=== PATIENT | male | born 1975 | race Two or more races ===

== ENCOUNTER → 2016-08-03 | Outpatient (CLI) | payer OTHER ==
--- NOTE | 2016-08-04 04:15 | REP ---
Clinical: Chronic right scrotal pain and swelling. Technique: Huddleston scale and color Doppler evaluation using linear and curved array transducer with color Doppler evaluation. Findings: Small left hydrocele with debris is appreciated along with large right debris laden hydrocele measuring approximately 14.3 cm maximal diameter suggesting sequelae of prior insult. The testicles and epididymi are relatively normal in contour, size, echogenicity, vascularity and overall appearance/contour. There is no evidence for intratesticular mass lesion, infectious/inflammatory process, with torsion. No intervened varicoceles are identified. Right testicle measures 5.7 x 2.2 x 2.9 cm. Left testicle measures 5.0 x 2.1 x 3.2 cm. Impression: 1. Chronic-appearing bilateral hydroceles (right greater than left) up to 14.3 cm maximal diameter in the right nanci scrotum. 2. Relatively normal appearance to the bilateral testicles and epididymi. Signed by Crispin Hernandez MD 08/04/2016 04:06 A
== END ==
LOC: M SMT 13:07
PROVIDERS: ATTEND Nurse Practitioner Family
DX: N50.89 Other specified disorders of the male genital organs (principal)

== ENCOUNTER → 2016-08-28 | Outpatient (REF) | payer OTHER ==
[~2016-08-28] MED LIST: LISI10TA4 PO; METF500T PO; ZOLO50TA PO
[2016-08-28 13:04] LABS: MEAN CORPUSCULAR HEMOGLOBIN 31.6 pg (27.0-33.0); MEAN CORPUSCULAR HGB CONC 35.9 g/dl (32.0-36.5); RED CELL DISTRIBUTION WIDTH 13.1 % (11.5-14.5); WHITE BLOOD COUNT 10.5 K/mm3 (4.0-10.0)
[2016-08-28 13:26] LABS: INR 0.95
[2016-08-28 14:05] LABS: ALBUMIN 3.7 GM/DL (3.2-5.2); ALBUMIN/GLOBULIN RATIO 1.06 (1.00-1.93); ALKALINE PHOSPHATASE 98 U/L (45-117); ALT/SGPT 20 U/L (12-78); ANION GAP 7 MEQ/L (8-16); AST/SGOT 10 U/L (15-37); BILIRUBIN,TOTAL 0.4 MG/DL (0.2-1.0); BLOOD UREA NITROGEN 12 MG/DL (7-18); CALCIUM LEVEL 8.9 MG/DL (8.5-10.1); CARBON DIOXIDE LEVEL 29 MEQ/L (21-32); CHLORIDE LEVEL 101 MEQ/L (98-107); CREATININE FOR GFR 0.76 MG/DL (0.70-1.30); GLOMERULAR FILTRATION RATE > 60.0 (>60); GLUCOSE, FASTING 164 MG/DL (70-105); POTASSIUM SERUM 4.6 MEQ/L (3.5-5.1); SODIUM LEVEL 137 MEQ/L (136-145); TOTAL PROTEIN 7.2 GM/DL (6.4-8.2)
== END ==
LOC: M LABDRWAD 12:41
PROVIDERS: ATTEND Nurse Practitioner Family
DX: Z01.818 Encounter for other preprocedural examination (principal); N43.3 Hydrocele, unspecified

== ENCOUNTER → 2016-10-14 | Day surgery (SDC) | payer OTHER ==
[~2016-10-14] VITALS: Ht 188 cm; Wt 93.4 kg
[~2016-10-14] MED LIST changes: +ATOR1TAB21 PO; +BUPIVACAINE HCL 0.25% 30 ML VIAL As Ordered ONE; +KETOROLAC 60 MG/2 ML VIAL (J1885) As Ordered ONE; +LIDOCAINE 2% INJ 100 MG/5 ML SDV (FOR ANES.) As Ordered ONE; +LIDOCAINE 2% MDV 20 ML VIAL As Ordered ONE; +LR 1,000 ML IV ONE; +LR 1,000 ML IV SCH; +MEPERIDINE INJ 25 MG/ML VIAL (J2175) IV PRN; -METF500T PO; +METF500T13 PO; +METOCLOPRAMIDE INJ 10MG/2ML VIAL (J2765) IV PRN; +MIDAZOLAM INJ 2 MG/2 ML VIAL (J2250) As Ordered ONE; +ONDANSETRON 4MG/2ML VIAL (J2405) As Ordered ONE; +ONDANSETRON 4MG/2ML VIAL (J2405) IV PRN; +PERCOCET 5MG/325MG TAB PO PRN; +PROPOFOL 200 MG/20 ML VIAL As Ordered ONE; +dexameTHASONE 4 MG/ML 1ML VIAL (J1100) As Ordered ONE; +fentaNYL 100 MCG/2 ML INJECTION (J3010) As Ordered ONE; +fentaNYL 100 MCG/2 ML INJECTION (J3010) IV PRN
[2016-10-14 14:20] VITALS: BP 152/89
--- NOTE | 2016-10-15 10:22 | RO ---
DATE OF PROCEDURE: 10/14/2016 PREPROCEDURE DIAGNOSIS: Right hydrocele. POSTPROCEDURE DIAGNOSIS: Right hydrocele PROCEDURE: Right hydrocelectomy. SURGEON: Jesu Lowe MD [employer] SPECIALIST: None. ANESTHESIA: General. OPERATIVE INDICATIONS: This is a 40-year-old male who was found to have a large right sided hydrocele. He is here today for treatment. DESCRIPTION OF PROCEDURE: The patient went to the operating room and general anesthesia was induced. Prophylactic antibiotics were infused. He was then placed in the supine position and prepped and draped in the usual sterile fashion. At this point, an approximately 6 cm transverse incision was made over the right hemiscrotum. I then dissected down through all the scrotal wall layers. At this point, the testicle was then delivered out of the scrotum but still within the tunica vaginalis. The tunica vaginalis was then opened and all the fluid was drained out of the hydrocele. Of note, the hydrocele fluid appeared clear. At this point, the hydrocele wall was excised and sent off for pathologic analysis. We then oversewed the edges of the hydrocele wall using a running #3-0 Vicryl suture. Once that was done, we checked for hemostasis and any areas of bleeding were controlled with Bovie electrocautery. Once we were satisfied with hemostasis, the testicle was the delivered back within the right hemiscrotum in its normal, anatomic position. We then closed the Dart[place] fascia with a running #3-0 Vicryl suture. The skin was then closed with interrupted #2-0 chromic sutures. Dressings were then applied and this marked conclusion of the procedure. The patient was then awakened from anesthesia, transported to the recovery room in stable condition. ESTIMATED BLOOD LOSS: 5 mL. COMPLICATIONS: None. SPECIMENS: Right hydrocele sac. PLAN: The patient will followup in the clinic in a few weeks for postoperative visit. NITA
== END | disposition home or self-care (01) ==
LOC: M SDC 09:22
PROVIDERS: ATTEND Urology
DX: N43.3 Hydrocele, unspecified (principal); E11.9 Type 2 diabetes mellitus without complications; I10 Essential (primary) hypertension; E78.5 Hyperlipidemia, unspecified; K21.9 Gastro-esophageal reflux disease without esophagitis; F17.210 Nicotine dependence, cigarettes, uncomplicated; Z79.899 Other long term (current) drug therapy; F32.9 Major depressive disorder, single episode, unspecified
CPT/HCPCS: 55040; 88302; J0690; J1100; J1885; J2250; J2405; J3010

== ENCOUNTER → 2017-12-16 | Outpatient (CLI) | payer OTHER | LOC: M RAD 13:11 | DX: E11.9 Type 2 diabetes mellitus without complications (principal) | CPT/HCPCS: 93880 ==

== ENCOUNTER → 2020-08-15 | Outpatient (REF) | payer OTHER, MEDICAID ==
[~2020-08-15] MED LIST changes: -BUPIVACAINE HCL 0.25% 30 ML VIAL As Ordered ONE; -KETOROLAC 60 MG/2 ML VIAL (J1885) As Ordered ONE; -LIDOCAINE 2% INJ 100 MG/5 ML SDV (FOR ANES.) As Ordered ONE; -LIDOCAINE 2% MDV 20 ML VIAL As Ordered ONE; +LISI10TA22 PO; -LISI10TA4 PO; -LR 1,000 ML IV ONE; -LR 1,000 ML IV SCH; -MEPERIDINE INJ 25 MG/ML VIAL (J2175) IV PRN; -METOCLOPRAMIDE INJ 10MG/2ML VIAL (J2765) IV PRN; -MIDAZOLAM INJ 2 MG/2 ML VIAL (J2250) As Ordered ONE; -ONDANSETRON 4MG/2ML VIAL (J2405) As Ordered ONE; -ONDANSETRON 4MG/2ML VIAL (J2405) IV PRN; -PERCOCET 5MG/325MG TAB PO PRN; -PROPOFOL 200 MG/20 ML VIAL As Ordered ONE; -dexameTHASONE 4 MG/ML 1ML VIAL (J1100) As Ordered ONE; -fentaNYL 100 MCG/2 ML INJECTION (J3010) As Ordered ONE; -fentaNYL 100 MCG/2 ML INJECTION (J3010) IV PRN
[2020-08-15 12:55] LABS: BASO # 0.1 10^3/uL (0.0-0.2); BASO % 0.8 % (0.0-1.0); EOS # 0.3 10^3/uL (0.0-0.5); EOS % 2.4 % (0.0-3.0); HEMATOCRIT 38.8 % (42.0-52.0); HEMOGLOBIN 13.3 g/dl (13.5-17.5); LYMPH # 1.7 10^3/uL (1.5-5.0); LYMPH % 13.5 % (24.0-44.0); MEAN CORPUSCULAR HEMOGLOBIN 30.1 pg (27.0-33.0); MEAN CORPUSCULAR HGB CONC 34.3 g/dl (32.0-36.5); MEAN CORPUSCULAR VOLUME 87.8 fl (80.0-96.0); MONO # 0.8 10^3/uL (0.0-0.8); MONO % 6.6 % (2.0-8.0); NEUTROPHILS # 9.7 10^3/uL (1.5-8.5); NEUTROPHILS % 76.3 % (36.0-66.0); PLATELET COUNT, AUTOMATED 398 10^3/uL (150-450); RED BLOOD COUNT 4.42 10^6/uL (4.30-6.10); WHITE BLOOD COUNT 12.7 10^3/uL (4.0-10.0)
[2020-08-15 13:46] LABS: ALBUMIN 2.6 GM/DL (3.2-5.2); BILIRUBIN,TOTAL 0.3 MG/DL (0.2-1.0); CALCIUM LEVEL 8.5 MG/DL (8.5-10.1); CHOLESTEROL RISK RATIO 4.666 (<5); CREATININE FOR GFR 1.72 MG/DL (0.70-1.30); GLOMERULAR FILTRATION RATE 45.8 (>60); POTASSIUM SERUM 5.1 MEQ/L (3.5-5.1); THYROID STIMULATING HORMONE 1.52 uIU/ML (0.358-3.740); TOTAL PROTEIN 6.1 GM/DL (6.4-8.2)
[2020-08-15 14:10] LABS: TOTAL 25(OH) VITAMIN D 15.1 NG/ML (30.0-100.0)
[2020-08-15 14:36] LABS: HEMOGLOBIN A1c 8.1 %
== END ==
LOC: M LABDRWAD 12:26
PROVIDERS: ATTEND Nurse Practitioner Family
DX: F32.9 Major depressive disorder, single episode, unspecified (principal); E11.9 Type 2 diabetes mellitus without complications; F17.209 Nicotine dependence, unspecified, with unspecified nicotine-induced disorders; I10 Essential (primary) hypertension

== ENCOUNTER 2024-03-07 03:51 | Inpatient (IN) | payer MEDICAID, OTHER ==
[~2024-03-07] VITALS: Ht 182.9 cm; Wt 98.8 kg
[2024-03-07] VITALS (38 sets, daily range): BP systolic 144–191; BP diastolic 66–111; TEMP 97.2–99.7; O2SAT 96–100
[2024-03-07] MEDS: NS (Normal Saline) 0.9% 1,000 ML IV ONE (04:30)
[2024-03-07 04:42] LABS: VENOUS BASE EXCESS -16.1 (-2.0-2.0); VENOUS HCO3 11.1 MMOL/L (23.0-27.0); VENOUS O2 SATURATION 96.2 % (60.0-80.0); VENOUS PARTIAL PRESSURE CO2 32.5 mmHg (38.0-50.0); VENOUS PARTIAL PRESSURE O2 110.1 mmHg (30.0-50.0); VENOUS PH 7.152 UNITS (7.330-7.430); VENOUS STANDARD HCO3 11.4 MMOL/L; VENOUS TOTAL CO2 12.1 MMOL/L (24.0-28.0)
[2024-03-07 04:51] LABS: BASO % 0.3 % (0.0-1.0); EOS # 0.2 10^3/uL (0.0-0.5); EOS % 2.6 % (0.0-3.0); LYMPH # 0.9 10^3/uL (1.5-5.0); LYMPH % 13.7 % (24.0-44.0); MEAN CORPUSCULAR HGB CONC 33.3 g/dl (32.0-36.5); MEAN CORPUSCULAR VOLUME 96.1 fl (80.0-96.0); MONO # 0.6 10^3/uL (0.0-0.8); MONO % 9.9 % (2.0-8.0); NEUTROPHILS # 4.8 10^3/uL (1.5-8.5); NEUTROPHILS % 73.2 % (36.0-66.0); PLATELET COUNT, AUTOMATED 245 10^3/uL (150-450); RED BLOOD COUNT 1.28 10^6/uL (4.30-6.10); WHITE BLOOD COUNT 6.5 10^3/uL (4.0-10.0)
[2024-03-07 04:56] LABS: HEMATOCRIT 12.3 % (42.0-52.0); HEMOGLOBIN 4.1 g/dl (13.5-17.5)
[2024-03-07 05:07] LABS: ETHYL ALCOHOL (ETHANOL) 0.004 % (0.000-0.010)
[2024-03-07 05:09] LABS: SALICYLATE LEVEL < 3.0 MG/DL (<30)
[2024-03-07 05:10] LABS: CPK CREATINE PHOSPHOKINASE 280 U/L (46-171); MB/CK RELATIVE INDEX 2.14 (< OR =4)
[2024-03-07 05:12] LABS: THYROID STIMULATING HORMONE 2.555 uIU/ML (0.55-4.78)
[2024-03-07 05:27] LABS: ALKALINE PHOSPHATASE 77 U/L (40-129); ALT/SGPT 14 U/L (7.0-40); AST/SGOT < 8 U/L (<34); BILIRUBIN,DIRECT < 0.1 MG/DL (<0.4); BILIRUBIN,TOTAL < 0.2 MG/DL (0.3-1.2); BLOOD UREA NITROGEN 144 MG/DL (9-23); CALCIUM LEVEL 8.1 MG/DL (8.5-10.1); CARBON DIOXIDE LEVEL 12 MMOL/L (20-31); CHLORIDE LEVEL 103 MMOL/L (98-107); CREATININE FOR GFR 12.12 MG/DL (0.70-1.30); GLOMERULAR FILTRATION RATE 4.7 (>56); GLUCOSE, FASTING 125 MG/DL (60-100); MAGNESIUM LEVEL 2.5 MG/DL (1.8-2.4); PHOSPHORUS LEVEL 9.9 MG/DL (2.5-4.9); POTASSIUM SERUM 5.6 MMOL/L (3.5-5.1); SODIUM LEVEL 133 MMOL/L (136-145); TOTAL PROTEIN 5.8 G/DL (5.7-8.2)
[2024-03-07] MEDS: NS (Normal Saline) 0.9% 2,860 ML in IV 1 EA IV ONE (05:30)
[2024-03-07] MEDS: SODIUM BICARBONATE 8.4% INJ 50ML SYRINGE IV STA (05:49)
[2024-03-07] MEDS: CALCIUM GLUCONATE 1,000 MG in DEXTROSE 5% (D5W) MINI-BAG PLU 100 ML IV ONE (06:36)
[2024-03-07 06:42] LABS: CK-MB VALUE MASS 6.4 NG/ML (<3.6)
[2024-03-07 06:52] LABS: MB/CK RELATIVE INDEX 2.45 (< OR =4)
[2024-03-07] MEDS ORDERED: METO1TAB32 PO (07:57)
[2024-03-07] MEDS ORDERED: GABA-1172 PO (07:57)
[2024-03-07] MEDS ORDERED: HOME MED LIST COMPLETE! XX SCH (08:00)
[2024-03-07 08:09] LABS: BASO % 0.5 % (0.0-1.0); EOS # 0.1 10^3/uL (0.0-0.5); EOS % 1.3 % (0.0-3.0); LYMPH # 0.9 10^3/uL (1.5-5.0); LYMPH % 14.7 % (24.0-44.0); MEAN CORPUSCULAR HEMOGLOBIN 31.9 pg (27.0-33.0); MEAN CORPUSCULAR VOLUME 96.6 fl (80.0-96.0); MONO # 0.6 10^3/uL (0.0-0.8); MONO % 9.1 % (2.0-8.0); NEUTROPHILS # 4.6 10^3/uL (1.5-8.5); NEUTROPHILS % 74.2 % (36.0-66.0); PLATELET COUNT, AUTOMATED 148 10^3/uL (150-450); RED BLOOD COUNT 1.16 10^6/uL (4.30-6.10); WHITE BLOOD COUNT 6.2 10^3/uL (4.0-10.0)
[2024-03-07 08:13] LABS: HEMATOCRIT 11.2 % (42.0-52.0); HEMOGLOBIN 3.7 g/dl (13.5-17.5)
[2024-03-07] MEDS ORDERED: LIDOCAINE 1% SDV 5ML VIAL SC PRN (10:50)
[2024-03-07] MEDS ORDERED: HEPARIN 1,000UNITS/ML 10ML VIAL (FOR RADIOLOGY & DIALYSIS ONLY) IV PRN (10:50)
[2024-03-07] MEDS ORDERED: SODIUM CHLORIDE 0.9% 1000 ML IV PRN (10:50)
[2024-03-07] MEDS ORDERED: ONDANSETRON 4MG 2ML VIAL IV PRN (11:05)
[2024-03-07] MEDS ORDERED: LEVALBUTEROL 1.25MG 0.5ML CONCENTRATE NEB NEB PRN (11:05)
[2024-03-07] MEDS ORDERED: PILL CUTTER 1 EACH XX PRN (11:45)
[2024-03-07] MEDS: HEPARIN 1,000UNITS/ML 10ML VIAL (FOR RADIOLOGY & DIALYSIS ONLY) XX SCH (12:01)
[2024-03-07 12:02] LABS: IRON (FE) 142 UG/DL (65-175); PERCENT SATURATION 53.2 % (19.7-50.0); TOTAL 25(OH) VITAMIN D 13.4 NG/ML (20.0-100.0); TOTAL IRON BINDING CAPACITY 267 UG/DL (250-425)
[2024-03-07 12:03] LABS: FERRITIN 30.9 NG/ML (10.5-307.3); HEPATITIS B SURFACE ANTIBODY NEGATIVE (POSITIVE)
[2024-03-07 12:04] LABS: VITAMIN B12 LEVEL 312 PG/ML (211-911)
[2024-03-07] MEDS: COLCHICINE 0.6 MG TABLET PO SCH (12:12)
[2024-03-07] MEDS: PANTOPRAZOLE 40MG VIAL IV SCH (12:13)
[2024-03-07 12:15] LABS: HEPATITIS B SURFACE ANTIGEN NEGATIVE (NEGATIVE)
[2024-03-07 12:35] LABS: HEPATITIS B CORE ANTIBODY IGM NEGATIVE (NEGATIVE)
[2024-03-07 12:37] LABS: HEPATITIS C VIRUS ABY INDEX < 0.02 INDEX (<0.8)
[2024-03-07] MEDS: ACETAMINOPHEN *IV* 1,000 MG in IV 1 EA IV ONE (12:52)
[2024-03-07] MEDS: LEVALBUTEROL 1.25MG 0.5ML CONCENTRATE NEB NEB SCH (13:53)
[2024-03-07 15:04] LABS: CHOLESTEROL LEVEL 98 MG/DL (<200); CHOLESTEROL RISK RATIO 3.69 (<5); HDL CHOLESTEROL 26.5 MG/DL (>40); LDL CHOLESTEROL 50.7 MG/DL (<100); NON-HDL-C 71.5 MG/DL; TRIGLYCERIDES LEVEL 104 MG/DL (<150)
[2024-03-07] MEDS: METOPROLOL SUCC *XL* 25MG TAB (TopROL *XL*) PO SCH (16:20)
[2024-03-07] MEDS: SERTRALINE HCL 50 MG TAB PO SCH (16:21)
[2024-03-07] MEDS: GABAPENTIN 300 MG CAP PO SCH (16:21)
[2024-03-07] MEDS: ATORVASTATIN 20 MG TAB PO SCH (16:21)
[2024-03-07] MEDS: ACETAMINOPHEN 325 MG TAB PO PRN (18:21)
[2024-03-07 19:03] LABS: BASO % 0.6 % (0.0-1.0); EOS # 0.1 10^3/uL (0.0-0.5); EOS % 1.5 % (0.0-3.0); LYMPH # 0.6 10^3/uL (1.5-5.0); LYMPH % 10.3 % (24.0-44.0); MEAN CORPUSCULAR HEMOGLOBIN 30.1 pg (27.0-33.0); MEAN CORPUSCULAR HGB CONC 34.9 g/dl (32.0-36.5); MEAN CORPUSCULAR VOLUME 86.1 fl (80.0-96.0); MONO # 0.5 10^3/uL (0.0-0.8); MONO % 8.8 % (2.0-8.0); NEUTROPHILS # 4.2 10^3/uL (1.5-8.5); NEUTROPHILS % 78.6 % (36.0-66.0); PLATELET COUNT, AUTOMATED 186 10^3/uL (150-450); RED BLOOD COUNT 1.73 10^6/uL (4.30-6.10); WHITE BLOOD COUNT 5.3 10^3/uL (4.0-10.0)
[2024-03-07 19:19] LABS: CALCIUM LEVEL 7.7 MG/DL (8.5-10.1); CREATININE FOR GFR 8.06 MG/DL (0.70-1.30); GLOMERULAR FILTRATION RATE 7.6 (>56); POTASSIUM SERUM 4.1 MMOL/L (3.5-5.1)
[2024-03-07 19:37] LABS: HEMATOCRIT 14.9 % (42.0-52.0); HEMOGLOBIN 5.2 g/dl (13.5-17.5)
[2024-03-08] VITALS (16 sets, daily range): BP systolic 150–192; BP diastolic 75–90; TEMP 98–99.7; O2SAT 96–99
[2024-03-08 04:39] LABS: MEAN CORPUSCULAR HEMOGLOBIN 29.8 pg (27.0-33.0); MEAN CORPUSCULAR HGB CONC 34.4 g/dl (32.0-36.5); MEAN CORPUSCULAR VOLUME 86.5 fl (80.0-96.0); PLATELET COUNT, AUTOMATED 174 10^3/uL (150-450); RED BLOOD COUNT 2.15 10^6/uL (4.30-6.10); WHITE BLOOD COUNT 5.4 10^3/uL (4.0-10.0)
[2024-03-08 04:41] LABS: HEMATOCRIT 18.6 % (42.0-52.0); HEMOGLOBIN 6.4 g/dl (13.5-17.5)
[2024-03-08 05:06] LABS: ALBUMIN 2.5 G/DL (3.2-5.2); ALKALINE PHOSPHATASE 67 U/L (40-129); ALT/SGPT 14 U/L (7.0-40); AST/SGOT < 8 U/L (<34); BILIRUBIN,TOTAL 0.4 MG/DL (0.3-1.2); BLOOD UREA NITROGEN 104 MG/DL (9-23); CALCIUM LEVEL 7.2 MG/DL (8.5-10.1); CARBON DIOXIDE LEVEL 18 MMOL/L (20-31); CHLORIDE LEVEL 103 MMOL/L (98-107); CREATININE FOR GFR 8.47 MG/DL (0.70-1.30); GLOMERULAR FILTRATION RATE 7.2 (>56); GLUCOSE, FASTING 105 MG/DL (60-100); PHOSPHORUS LEVEL 7.6 MG/DL (2.5-4.9); POTASSIUM SERUM 4.6 MMOL/L (3.5-5.1); SODIUM LEVEL 135 MMOL/L (136-145); TOTAL PROTEIN 5.1 G/DL (5.7-8.2)
[2024-03-08] MEDS ORDERED: SODIUM CHLORIDE 0.9% 1000 ML IV PRN (06:00)
[2024-03-08] MEDS ORDERED: HEPARIN 1,000UNITS/ML 10ML VIAL (FOR RADIOLOGY & DIALYSIS ONLY) XX SCH (06:00)
[2024-03-08] MEDS ORDERED: LIDOCAINE 1% SDV 5ML VIAL SC PRN (06:00)
[2024-03-08] MEDS ORDERED: HEPARIN 1,000UNITS/ML 10ML VIAL (FOR RADIOLOGY & DIALYSIS ONLY) IV PRN (06:00)
[2024-03-08] MEDS: CALCITRIOL 0.25 MCG CAP (S0169) PO SCH (07:18)
[2024-03-08] MEDS: VITAMIN D 1,000 INTERNATIONAL UNITS TABLET PO SCH (07:18)
[2024-03-08] MEDS: **hydrALAZINE** 50 MG TAB PO SCH (08:01)
[2024-03-08 13:19] LABS: HEMOGLOBIN 7.2 g/dl (13.5-17.5)
[2024-03-08 13:24] LABS: HEMATOCRIT 20.9 % (42.0-52.0)
[2024-03-08] MEDS: DARBEPOETIN 100MCG/0.5ML *DIALYSIS* SYRINGE IV SCH (14:01)
[2024-03-08] MEDS: IRON SUCROSE 100MG 5ML VIAL IV SCH (14:32)
[2024-03-08 19:59] LABS: HEMATOCRIT 22.1 % (42.0-52.0); HEMOGLOBIN 7.7 g/dl (13.5-17.5); MEAN CORPUSCULAR HEMOGLOBIN 29.4 pg (27.0-33.0); MEAN CORPUSCULAR HGB CONC 34.8 g/dl (32.0-36.5); MEAN CORPUSCULAR VOLUME 84.4 fl (80.0-96.0); PLATELET COUNT, AUTOMATED 190 10^3/uL (150-450); RED BLOOD COUNT 2.62 10^6/uL (4.30-6.10); WHITE BLOOD COUNT 7.6 10^3/uL (4.0-10.0)
[2024-03-08] MEDS: **hydrALAZINE** 50 MG TAB PO ONE (22:26)
[2024-03-09 03:20] VITALS: BP 149/76; TEMP 98.2; O2SAT 97
[2024-03-09] MEDS ORDERED: HEPARIN 1,000UNITS/ML 10ML VIAL (FOR RADIOLOGY & DIALYSIS ONLY) IV PRN (06:00)
[2024-03-09] MEDS ORDERED: SODIUM CHLORIDE 0.9% 1000 ML IV PRN (06:00)
[2024-03-09] MEDS ORDERED: LIDOCAINE 1% SDV 5ML VIAL SC PRN (06:00)
[2024-03-09 08:00] VITALS: BP 178/92; TEMP 99.6; O2SAT 99
[2024-03-09 08:14] LABS: HEMOGLOBIN 7.6 g/dl (13.5-17.5); MEAN CORPUSCULAR HEMOGLOBIN 29.5 pg (27.0-33.0); MEAN CORPUSCULAR HGB CONC 34.5 g/dl (32.0-36.5); MEAN CORPUSCULAR VOLUME 85.3 fl (80.0-96.0); PLATELET COUNT, AUTOMATED 189 10^3/uL (150-450); RED BLOOD COUNT 2.58 10^6/uL (4.30-6.10); WHITE BLOOD COUNT 6.8 10^3/uL (4.0-10.0)
[2024-03-09 08:57] LABS: ALBUMIN 2.8 G/DL (3.2-5.2); BILIRUBIN,TOTAL 0.3 MG/DL (0.3-1.2); CALCIUM LEVEL 8.3 MG/DL (8.5-10.1); CREATININE FOR GFR 6.65 MG/DL (0.70-1.30); GLOMERULAR FILTRATION RATE 9.5 (>56); POTASSIUM SERUM 4.2 MMOL/L (3.5-5.1); TOTAL PROTEIN 5.5 G/DL (5.7-8.2)
[2024-03-09] MEDS: HEPARIN 1,000UNITS/ML 10ML VIAL (FOR RADIOLOGY & DIALYSIS ONLY) XX SCH (10:05)
[2024-03-09 10:37] LABS: Estimated Ave Glu(eAG) 5.5 mmol/L; Hemoglobin A1c 5.1 (<5.7)
[2024-03-09 12:48] VITALS: BP 154/79; TEMP 98.7; O2SAT 98
[2024-03-09] MEDS: SENNA 8.6 MG TAB (SENOKOT) PO SCH (12:53)
[2024-03-09] MEDS: DOCUSATE SODIUM 100MG CAPSULE PO SCH (12:53)
[2024-03-09] MEDS ORDERED: NS (Normal Saline) 0.9% 1,000 ML IV SCH (13:40)
[2024-03-09] MEDS ORDERED: ceFAZolin 2 GM/D5W 50 ML IV BAG As Ordered ONE (13:48)
[2024-03-09] MEDS ORDERED: MIDAZOLAM INJ 2MG/2ML VIAL As Ordered ONE (13:49)
[2024-03-09] MEDS ORDERED: HEPARIN 1,000UNITS/ML 10ML VIAL (FOR RADIOLOGY & DIALYSIS ONLY) As Ordered ONE (13:49)
[2024-03-09] MEDS ORDERED: fentaNYL 100 MCG/2 ML INJECTION As Ordered ONE (13:49)
[2024-03-09] MEDS ORDERED: LIDOCAINE 1% MDV 20ML VIAL As Ordered ONE (13:49)
[2024-03-09] MEDS: ceFAZolin SOD 2 GM in IV 1 EA IV ONE (14:05)
[2024-03-09] MEDS: GOLYTELY SOLN 4000 ML BTL PO ONE (15:45)
[2024-03-09 15:55] VITALS: BP 153/75; TEMP 98.1; O2SAT 95
[2024-03-09 20:08] VITALS: BP 178/88; TEMP 98.8; O2SAT 98
[2024-03-10] VITALS (14 sets, daily range): BP systolic 130–177; BP diastolic 67–89; TEMP 97.2–99.1; O2SAT 95–100
[2024-03-10] MEDS ORDERED: SODIUM CHLORIDE 0.9% 250ML IV PRN (06:00)
[2024-03-10] MEDS ORDERED: LIDOCAINE 1% SDV 5ML VIAL SC PRN (06:00)
[2024-03-10] MEDS ORDERED: HEPARIN 1,000UNITS/ML 10ML VIAL (FOR RADIOLOGY & DIALYSIS ONLY) IV PRN (06:00)
[2024-03-10 06:21] LABS: HEMATOCRIT 21.1 % (42.0-52.0); HEMOGLOBIN 7.1 g/dl (13.5-17.5); MEAN CORPUSCULAR HEMOGLOBIN 29.6 pg (27.0-33.0); MEAN CORPUSCULAR HGB CONC 33.6 g/dl (32.0-36.5); MEAN CORPUSCULAR VOLUME 87.9 fl (80.0-96.0); PLATELET COUNT, AUTOMATED 179 10^3/uL (150-450); WHITE BLOOD COUNT 7.9 10^3/uL (4.0-10.0)
[2024-03-10 06:44] LABS: ALBUMIN 2.6 G/DL (3.2-5.2); ALKALINE PHOSPHATASE 68 U/L (40-129); ALT/SGPT 12 U/L (7.0-40); AST/SGOT 11 U/L (<34); BILIRUBIN,TOTAL < 0.2 MG/DL (0.3-1.2); BLOOD UREA NITROGEN 43 MG/DL (9-23); CALCIUM LEVEL 8.3 MG/DL (8.5-10.1); CARBON DIOXIDE LEVEL 27 MMOL/L (20-31); CHLORIDE LEVEL 102 MMOL/L (98-107); CREATININE FOR GFR 4.91 MG/DL (0.70-1.30); GLOMERULAR FILTRATION RATE 13.4 (>56); GLUCOSE, FASTING 113 MG/DL (60-100); MAGNESIUM LEVEL 1.8 MG/DL (1.8-2.4); PHOSPHORUS LEVEL 4.7 MG/DL (2.5-4.9); POTASSIUM SERUM 3.9 MMOL/L (3.5-5.1); SODIUM LEVEL 137 MMOL/L (136-145); TOTAL PROTEIN 5.1 G/DL (5.7-8.2)
[2024-03-10] MEDS: HEPARIN 1,000UNITS/ML 10ML VIAL (FOR RADIOLOGY & DIALYSIS ONLY) XX SCH (10:05)
[2024-03-10] MEDS ORDERED: propofoL 500 MG/50 ML VIAL As Ordered ONE (12:43)
[2024-03-10] MEDS ORDERED: LIDOCAINE 2% 100MG/5ML SDV (FOR ANES.) As Ordered ONE (12:45)
[2024-03-10 15:01] LABS: HEMATOCRIT 27.6 % (42.0-52.0)
[2024-03-10 15:07] LABS: HEMOGLOBIN 9.6 g/dl (13.5-17.5)
[2024-03-10] MEDS: SUCRALFATE 1 GM TAB PO SCH (16:49)
[2024-03-11 03:51] VITALS: BP 161/83; TEMP 97.6; O2SAT 98
[2024-03-11] MEDS ORDERED: SODIUM CHLORIDE 0.9% 1000 ML IV PRN (06:00)
[2024-03-11] MEDS ORDERED: HEPARIN 1,000UNITS/ML 10ML VIAL (FOR RADIOLOGY & DIALYSIS ONLY) IV PRN (06:00)
[2024-03-11 06:48] LABS: HEMATOCRIT 24.2 % (42.0-52.0); HEMOGLOBIN 8.1 g/dl (13.5-17.5); MEAN CORPUSCULAR HEMOGLOBIN 29.7 pg (27.0-33.0); MEAN CORPUSCULAR HGB CONC 33.5 g/dl (32.0-36.5); MEAN CORPUSCULAR VOLUME 88.6 fl (80.0-96.0); PLATELET COUNT, AUTOMATED 170 10^3/uL (150-450); RED BLOOD COUNT 2.73 10^6/uL (4.30-6.10); WHITE BLOOD COUNT 8.5 10^3/uL (4.0-10.0)
[2024-03-11 07:15] LABS: ALBUMIN 2.6 G/DL (3.2-5.2); BILIRUBIN,TOTAL 0.2 MG/DL (0.3-1.2); CALCIUM LEVEL 8.2 MG/DL (8.5-10.1); CREATININE FOR GFR 4.45 MG/DL (0.70-1.30); POTASSIUM SERUM 3.9 MMOL/L (3.5-5.1); TOTAL PROTEIN 5.2 G/DL (5.7-8.2)
[2024-03-11 08:30] VITALS: BP 165/78; TEMP 98.4; O2SAT 97
[2024-03-11 12:16] VITALS: BP 131/73; TEMP 98.8; O2SAT 95
[2024-03-11] MEDS: HEPARIN 1,000UNITS/ML 10ML VIAL (FOR RADIOLOGY & DIALYSIS ONLY) XX SCH (12:25)
[2024-03-11 16:10] VITALS: BP 154/72; TEMP 98.5; O2SAT 97
[2024-03-11 17:08] LABS: HEMATOCRIT 23.9 % (42.0-52.0); MEAN CORPUSCULAR HEMOGLOBIN 30.3 pg (27.0-33.0); MEAN CORPUSCULAR HGB CONC 33.5 g/dl (32.0-36.5); MEAN CORPUSCULAR VOLUME 90.5 fl (80.0-96.0); PLATELET COUNT, AUTOMATED 169 10^3/uL (150-450); RED BLOOD COUNT 2.64 10^6/uL (4.30-6.10); WHITE BLOOD COUNT 7.6 10^3/uL (4.0-10.0)
[2024-03-11 19:22] VITALS: BP 149/77; TEMP 97.6; O2SAT 99
[2024-03-11 23:51] VITALS: BP 178/88; TEMP 98.5; O2SAT 99
[2024-03-12 03:37] VITALS: BP 187/87; TEMP 98.6; O2SAT 100
[2024-03-12] MEDS: **hydrALAZINE** 10 MG TAB PO ONE (03:57)
[2024-03-12 05:56] LABS: HEMATOCRIT 23.7 % (42.0-52.0); HEMOGLOBIN 7.9 g/dl (13.5-17.5); MEAN CORPUSCULAR HEMOGLOBIN 30.7 pg (27.0-33.0); MEAN CORPUSCULAR HGB CONC 33.3 g/dl (32.0-36.5); MEAN CORPUSCULAR VOLUME 92.2 fl (80.0-96.0); PLATELET COUNT, AUTOMATED 176 10^3/uL (150-450); RED BLOOD COUNT 2.57 10^6/uL (4.30-6.10); WHITE BLOOD COUNT 7.8 10^3/uL (4.0-10.0)
[2024-03-12 06:35] LABS: ALBUMIN 2.4 G/DL (3.2-5.2); BILIRUBIN,TOTAL 0.2 MG/DL (0.3-1.2); CALCIUM LEVEL 8.3 MG/DL (8.5-10.1); CREATININE FOR GFR 4.34 MG/DL (0.70-1.30); GLOMERULAR FILTRATION RATE 15.5 (>56); MAGNESIUM LEVEL 1.8 MG/DL (1.8-2.4); PHOSPHORUS LEVEL 3.3 MG/DL (2.5-4.9); POTASSIUM SERUM 4.1 MMOL/L (3.5-5.1); TOTAL PROTEIN 4.9 G/DL (5.7-8.2)
[2024-03-12 07:49] VITALS: BP_SYST 153; BP_SYST 170; BP_DIAS 79; BP_DIAS 81; TEMP 98.5; O2SAT 98
[2024-03-12] MEDS: **hydrALAZINE** 50 MG TAB PO SCH (08:27)
[2024-03-12 12:30] VITALS: BP_SYST 159; BP_SYST 59; BP_DIAS 75; TEMP 98.1; O2SAT 98
[2024-03-12 16:00] VITALS: BP 147/71; TEMP 98.7; O2SAT 94
[2024-03-12 19:14] VITALS: BP 143/72; TEMP 98.2; O2SAT 95
[2024-03-12] MEDS: PANTOPRAZOLE 40MG TAB (PROTONIX) PO SCH (20:09)
[2024-03-12 23:53] VITALS: BP 160/76; TEMP 98.6; O2SAT 98
[2024-03-13 03:36] VITALS: BP 156/75; TEMP 97.7; O2SAT 97
[2024-03-13 07:16] LABS: HEMATOCRIT 23.2 % (42.0-52.0); HEMOGLOBIN 8.1 g/dl (13.5-17.5); MEAN CORPUSCULAR HGB CONC 34.9 g/dl (32.0-36.5); MEAN CORPUSCULAR VOLUME 91.7 fl (80.0-96.0); PLATELET COUNT, AUTOMATED 201 10^3/uL (150-450); RED BLOOD COUNT 2.53 10^6/uL (4.30-6.10); WHITE BLOOD COUNT 7.4 10^3/uL (4.0-10.0)
[2024-03-13 07:45] LABS: ALBUMIN 2.5 G/DL (3.2-5.2); BILIRUBIN,TOTAL 0.2 MG/DL (0.3-1.2); CALCIUM LEVEL 8.1 MG/DL (8.5-10.1); CREATININE FOR GFR 5.94 MG/DL (0.70-1.30); GLOMERULAR FILTRATION RATE 10.8 (>56); POTASSIUM SERUM 4.3 MMOL/L (3.5-5.1)
[2024-03-13 08:00] VITALS: BP 146/71; TEMP 98.6; O2SAT 97
[2024-03-13 09:18] VITALS: BP 146/71
[2024-03-13 12:00] VITALS: BP 127/66; TEMP 98.5; O2SAT 98
[2024-03-13] MEDS ORDERED: SUCR1TA PO (12:04)
[2024-03-13] MEDS ORDERED: HYDR50TA46 PO (12:04)
[2024-03-13] MEDS ORDERED: GLIP5TAB17 PO (12:04)
[2024-03-13] MEDS ORDERED: PANT40TA29 PO (12:04)
[2024-03-13] MEDS ORDERED: GLIP2.5T6 PO (12:07)
== END 2024-03-13 14:16 | disposition home or self-care (01) | DRG 470 ==
LOC: M ED 03:51 → EDBD 03:51 → EDBEDREQSVC 07:08 → M ED INP 08:25 → M ICU 09:06 → M PCU 03-08 15:55
PROVIDERS: ADMIT Internal Medicine Pulmonary Disease; ATTEND Internal Medicine
PROC: 30233N1 Transfusion of Nonautologous Red Blood Cells into Peripheral Vein, Percutaneous Approach (ICD-10-PCS; 2024-03-07)
PROC: 5A1D70Z Performance of Urinary Filtration, Intermittent, Less than 6 Hours Per Day (ICD-10-PCS; 2024-03-07)
PROC: 02HV33Z Insertion of Infusion Device into Superior Vena Cava, Percutaneous Approach (ICD-10-PCS; 2024-03-09)
PROC: 05PYX3Z Removal of Infusion Device from Upper Vein, External Approach (ICD-10-PCS; principal; 2024-03-09 15:30)
PROC: 0JH63XZ Insertion of Tunneled Vascular Access Device into Chest Subcutaneous Tissue and Fascia, Percutaneous Approach (ICD-10-PCS; 2024-03-09 15:30)
PROC: 0DJ08ZZ Inspection of Upper Intestinal Tract, Via Natural or Artificial Opening Endoscopic (ICD-10-PCS; 2024-03-10)
PROC: 0DB68ZX Excision of Stomach, Via Natural or Artificial Opening Endoscopic, Diagnostic (ICD-10-PCS; 2024-03-10)
DX: I12.0 Hypertensive chronic kidney disease with stage 5 chronic kidney disease or end stage renal disease (principal); G93.40 Encephalopathy, unspecified; E87.20 Acidosis, unspecified; N18.6 End stage renal disease; I32 Pericarditis in diseases classified elsewhere; K92.2 Gastrointestinal hemorrhage, unspecified; E11.22 Type 2 diabetes mellitus with diabetic chronic kidney disease; E11.51 Type 2 diabetes mellitus with diabetic peripheral angiopathy without gangrene; E11.319 Type 2 diabetes mellitus with unspecified diabetic retinopathy without macular edema; E87.1 Hypo-osmolality and hyponatremia; E83.42 Hypomagnesemia; E87.5 Hyperkalemia; E83.39 Other disorders of phosphorus metabolism; D63.1 Anemia in chronic kidney disease; K31.89 Other diseases of stomach and duodenum; Z91.040 Latex allergy status; E78.5 Hyperlipidemia, unspecified; Z79.899 Other long term (current) drug therapy; Z91.148 Patient's other noncompliance with medication regimen for other reason; F17.210 Nicotine dependence, cigarettes, uncomplicated; D12.5 Benign neoplasm of sigmoid colon; D12.4 Benign neoplasm of descending colon; D12.2 Benign neoplasm of ascending colon; D50.9 Iron deficiency anemia, unspecified; K29.70 Gastritis, unspecified, without bleeding; N17.9 Acute kidney failure, unspecified

== ENCOUNTER → 2024-06-14 | Outpatient (CLI) | payer OTHER ==
[~2024-06-14] MED LIST changes: +E-Z-GAS II EFFERVESCENT PACKET (SODIUM BICARB./CITRIC ACID/SIMETHICONE) As Ordered ONE; +E-Z-HD 98% w/w 340GM SUSP BTL As Ordered ONE; +E-Z-PAQUE 96% w/w SUSP 176GM BTL As Ordered ONE; +GABA-1172 PO; +GLIP2.5T46 PO; +GLIP5TAB17 PO; +HYDR50TA46 PO; +METO1TAB32 PO; +PANT40TA29 PO; +SUCR1TA PO
== END ==
LOC: M RAD 08:44
PROVIDERS: ATTEND Physician Assistant
DX: D37.1 Neoplasm of uncertain behavior of stomach (principal); K44.9 Diaphragmatic hernia without obstruction or gangrene; K21.9 Gastro-esophageal reflux disease without esophagitis

== ENCOUNTER 2024-06-22 10:41 | Inpatient (IN) | payer OTHER ==
[2024-06-22] VITALS (7 sets, daily range): BP systolic 108–160; BP diastolic 53–85; TEMP 97.8–98; O2SAT 98–100
[~2024-06-22] VITALS: Ht 188 cm; Wt 105.0 kg
[~2024-06-22 10:41] MED LIST changes: -E-Z-GAS II EFFERVESCENT PACKET (SODIUM BICARB./CITRIC ACID/SIMETHICONE) As Ordered ONE; -E-Z-HD 98% w/w 340GM SUSP BTL As Ordered ONE; -E-Z-PAQUE 96% w/w SUSP 176GM BTL As Ordered ONE
[2024-06-22 11:28] LABS: BASO % 0.2 % (0.0-1.0); EOS # 0.1 10^3/uL (0.0-0.5); HEMATOCRIT 27.4 % (42.0-52.0); HEMOGLOBIN 9.8 g/dl (13.5-17.5); LYMPH # 0.6 10^3/uL (1.5-5.0); LYMPH % 11.6 % (24.0-44.0); MEAN CORPUSCULAR HEMOGLOBIN 30.5 pg (27.0-33.0); MEAN CORPUSCULAR HGB CONC 35.8 g/dl (32.0-36.5); MEAN CORPUSCULAR VOLUME 85.4 fl (80.0-96.0); MONO # 0.6 10^3/uL (0.0-0.8); MONO % 11.4 % (2.0-8.0); NEUTROPHILS # 3.9 10^3/uL (1.5-8.5); NEUTROPHILS % 75.4 % (36.0-66.0); PLATELET COUNT, AUTOMATED 176 10^3/uL (150-450); RED BLOOD COUNT 3.21 10^6/uL (4.30-6.10); WHITE BLOOD COUNT 5.2 10^3/uL (4.0-10.0)
[2024-06-22 11:41] LABS: INR 0.95
[2024-06-22] MEDS ORDERED: DEXTROSE 50% 50ML SYRINGE As Ordered ONE (12:00)
[2024-06-22 12:02] LABS: CK-MB VALUE MASS 8.7 NG/ML (<3.6); LIPASE 105 U/L (12-53)
[2024-06-22] MEDS: DEXTROSE 50% 50ML SYRINGE IV STA ×4 (12:08→17:07)
[2024-06-22] MEDS: MORPHINE 2 MG/ML 1ML VIAL IV PRN (12:08)
[2024-06-22] MEDS: GASTROGRAFIN SOLUTION 30ML PO SCH (12:08)
[2024-06-22 12:09] LABS: ALBUMIN 3.5 G/DL (3.2-5.2); ALKALINE PHOSPHATASE 99 U/L (40-129); ALT/SGPT 21 U/L (7.0-40); AST/SGOT 15 U/L (<34); BILIRUBIN,DIRECT < 0.1 MG/DL (<0.4); BILIRUBIN,TOTAL < 0.2 MG/DL (0.3-1.2); BLOOD UREA NITROGEN 96 MG/DL (9-23); CALCIUM LEVEL 8.2 MG/DL (8.5-10.1); CARBON DIOXIDE LEVEL 15 MMOL/L (20-31); CHLORIDE LEVEL 94 MMOL/L (98-107); CPK CREATINE PHOSPHOKINASE 309 U/L (46-171); CREATININE FOR GFR 12.14 MG/DL (0.70-1.30); GLOMERULAR FILTRATION RATE 4.7 (>56); GLUCOSE, FASTING 46 MG/DL (60-100); MB/CK RELATIVE INDEX 2.81 (< OR =4); POTASSIUM SERUM 4.4 MMOL/L (3.5-5.1); SODIUM LEVEL 123 MMOL/L (136-145); TOTAL PROTEIN 6.9 G/DL (5.7-8.2)
[2024-06-22] MEDS: NS (Normal Saline) 0.9% 1,000 ML IV ONE (12:09)
[2024-06-22 12:38] LABS: ABG BASE EXCESS -14.4 (-2.0-2.0); ABG HCO3 11.6 MMOL/L (22.0-26.0); ABG O2 SATURATION 95.8 % (95.0-99.0); ABG PARTIAL PRESSURE CO2 27.7 mmHg (35.0-45.0); ABG PARTIAL PRESSURE O2 127.3 mmHg (75.0-100.0); ABG STANDARD HCO3 13.1 MMOL/L. (22.0-26.0); ABG TOTAL CO2 12.4 MMOL/L (22.0-29.0)
[2024-06-22 12:39] LABS: ABG pH (ARTERIAL) 7.239 UNITS (7.350-7.450)
[2024-06-22] MEDS ORDERED: SODIUM BICARBONATE 150 MEQ in D5W 1,000 ML IV SCH (12:45)
[2024-06-22] MEDS: SODIUM BICARBONATE 150 MEQ in D5W 1,000 ML IV SCH (13:12)
[2024-06-22] MEDS ORDERED: HYDR50TA46 PO (13:45)
[2024-06-22] MEDS ORDERED: GLIP2.5T46 PO (13:45)
[2024-06-22] MEDS ORDERED: LISI20TA37 PO (13:45)
[2024-06-22] MEDS ORDERED: PANT40TA29 PO (13:45)
[2024-06-22 13:46] LABS: CK-MB VALUE MASS 8.7 NG/ML (<3.6)
[2024-06-22] MEDS ORDERED: SEVE800T3 PO (13:46)
[2024-06-22 13:47] LABS: MB/CK RELATIVE INDEX 3.08 (< OR =4)
[2024-06-22 13:50] LABS: FREE T4 0.77 NG/DL (0.89-1.76); THYROID STIMULATING HORMONE 1.786 uIU/ML (0.55-4.78)
[2024-06-22] MEDS ORDERED: HOME MED LIST COMPLETE! XX SCH (13:50)
[2024-06-22] MEDS: D10W 1,000 ML IV SCH ×2 (15:33→17:07)
[2024-06-22 16:40] LABS: CALCIUM LEVEL 7.5 MG/DL (8.5-10.1); CREATININE FOR GFR 12.08 MG/DL (0.70-1.30); GLOMERULAR FILTRATION RATE 4.7 (>56); POTASSIUM SERUM 3.7 MMOL/L (3.5-5.1)
[2024-06-22] MEDS ORDERED: GLUCAGON INJ 1MG VIAL SC PRN (18:00)
[2024-06-22] MEDS ORDERED: GLUCOSE 4 GM CHEW PO PRN (18:00)
[2024-06-22] MEDS ORDERED: SODIUM CHLORIDE 0.9% 1000 ML IV PRN (18:30)
[2024-06-22] MEDS ORDERED: HEPARIN 1,000UNITS/ML 10ML VIAL (FOR RADIOLOGY & DIALYSIS ONLY) IV PRN (18:30)
[2024-06-22] MEDS: DEXTROSE 50% 50ML SYRINGE IV PRN (19:18)
[2024-06-22] MEDS: HEPARIN 1,000UNITS/ML 10ML VIAL (FOR RADIOLOGY & DIALYSIS ONLY) XX SCH (20:28)
[2024-06-22 20:45] LABS: HEPATITIS B SURFACE ANTIGEN NEGATIVE (NEGATIVE)
[2024-06-22] MEDS: LevoFLOXacin 750 MG TABLET PO ONE (22:01)
[2024-06-22] MEDS: HEPARIN SOD (PORCINE) 5000UNITS/ML 1ML VIAL/SYRINGE SC SCH (22:02)
[2024-06-22] MEDS: ACETAMINOPHEN *IV* 1,000 MG in IV 1 EA IV PRN (22:03)
[2024-06-23] VITALS (12 sets, daily range): BP systolic 133–159; BP diastolic 60–79; TEMP 98.6–100; O2SAT 97–99
[2024-06-23 00:30] LABS: CREATININE FOR GFR 6.12 MG/DL (0.70-1.30); GLOMERULAR FILTRATION RATE 10.4 (>56); POTASSIUM SERUM 3.6 MMOL/L (3.5-5.1)
[2024-06-23 04:32] LABS: HEMATOCRIT 22.1 % (42.0-52.0); HEMOGLOBIN 7.9 g/dl (13.5-17.5); MEAN CORPUSCULAR HEMOGLOBIN 29.7 pg (27.0-33.0); MEAN CORPUSCULAR HGB CONC 35.7 g/dl (32.0-36.5); MEAN CORPUSCULAR VOLUME 83.1 fl (80.0-96.0); PLATELET COUNT, AUTOMATED 172 10^3/uL (150-450); RED BLOOD COUNT 2.66 10^6/uL (4.30-6.10); WHITE BLOOD COUNT 3.1 10^3/uL (4.0-10.0)
[2024-06-23 04:57] LABS: ALBUMIN 2.7 G/DL (3.2-5.2); BILIRUBIN,TOTAL 0.2 MG/DL (0.3-1.2); CALCIUM LEVEL 7.3 MG/DL (8.5-10.1); CREATININE FOR GFR 7.02 MG/DL (0.70-1.30); GLOMERULAR FILTRATION RATE 8.9 (>56); MAGNESIUM LEVEL 1.8 MG/DL (1.8-2.4); PHOSPHORUS LEVEL 3.9 MG/DL (2.5-4.9); POTASSIUM SERUM 3.9 MMOL/L (3.5-5.1); TOTAL PROTEIN 5.6 G/DL (5.7-8.2)
[2024-06-23 05:56] LABS: ABG BASE EXCESS -4.5 (-2.0-2.0); ABG HCO3 19.5 MMOL/L (22.0-26.0); ABG O2 SATURATION 96.8 % (95.0-99.0); ABG PARTIAL PRESSURE O2 161.9 mmHg (75.0-100.0); ABG STANDARD HCO3 20.7 MMOL/L. (22.0-26.0); ABG TOTAL CO2 20.4 MMOL/L (22.0-29.0); ABG pH (ARTERIAL) 7.416 UNITS (7.350-7.450)
[2024-06-23] MEDS: PANTOPRAZOLE 40MG VIAL IV SCH (09:07)
[2024-06-23] MEDS ORDERED: METOPROLOL SUCC *XL* 25MG TAB (TopROL *XL*) PO SCH (12:25)
[2024-06-23] MEDS: (RENVELA) SEVELAMER **CARBONate** 800 MG TAB PO SCH (13:38)
[2024-06-23] MEDS: GABAPENTIN 300 MG CAP PO SCH (13:47)
[2024-06-23] MEDS: ATORVASTATIN 20 MG TAB PO SCH (13:47)
[2024-06-23] MEDS: PANTOPRAZOLE 40MG TAB (PROTONIX) PO SCH (20:09)
[2024-06-23] MEDS ORDERED: **hydrALAZINE** 50 MG TAB PO SCH (21:00)
[2024-06-24 04:22] VITALS: BP 139/61; TEMP 98.8; O2SAT 96
[2024-06-24 05:40] LABS: BASO % 0.6 % (0.0-1.0); EOS # 0.1 10^3/uL (0.0-0.5); EOS % 2.3 % (0.0-3.0); HEMOGLOBIN 8.2 g/dl (13.5-17.5); LYMPH # 0.8 10^3/uL (1.5-5.0); LYMPH % 24.3 % (24.0-44.0); MEAN CORPUSCULAR HEMOGLOBIN 29.7 pg (27.0-33.0); MEAN CORPUSCULAR HGB CONC 35.7 g/dl (32.0-36.5); MEAN CORPUSCULAR VOLUME 83.3 fl (80.0-96.0); MONO # 0.6 10^3/uL (0.0-0.8); MONO % 16.4 % (2.0-8.0); NEUTROPHILS # 1.9 10^3/uL (1.5-8.5); NEUTROPHILS % 56.1 % (36.0-66.0); PLATELET COUNT, AUTOMATED 178 10^3/uL (150-450); RED BLOOD COUNT 2.76 10^6/uL (4.30-6.10); WHITE BLOOD COUNT 3.4 10^3/uL (4.0-10.0)
[2024-06-24] MEDS ORDERED: SODIUM CHLORIDE 0.9% 1000 ML IV PRN (06:00)
[2024-06-24] MEDS ORDERED: LIDOCAINE 1% SDV 5ML VIAL SC PRN (06:00)
[2024-06-24] MEDS ORDERED: HEPARIN 1,000UNITS/ML 10ML VIAL (FOR RADIOLOGY & DIALYSIS ONLY) IV PRN (06:00)
[2024-06-24 06:27] LABS: CREATININE FOR GFR 8.47 MG/DL (0.70-1.30); GLOMERULAR FILTRATION RATE 7.2 (>56); POTASSIUM SERUM 4.5 MMOL/L (3.5-5.1)
[2024-06-24 08:00] VITALS: BP 186/90; TEMP 99.3; O2SAT 98
[2024-06-24] MEDS: HEPARIN 1,000UNITS/ML 10ML VIAL (FOR RADIOLOGY & DIALYSIS ONLY) XX SCH (10:10)
[2024-06-24 12:49] VITALS: BP 136/70
[2024-06-24] MEDS: **hydrALAZINE** 50 MG TAB PO SCH (12:49)
[2024-06-24] MEDS: METOPROLOL SUCC *XL* 25MG TAB (TopROL *XL*) PO SCH (12:50)
[2024-06-24] MEDS ORDERED: LevoFLOXacin 500 MG TABLET PO SCH (18:00)
[2024-06-27 00:45] LABS: Estimated Ave Glu(eAG) 6.2 mmol/L; Hemoglobin A1c 5.5 (<5.7)
== END 2024-06-24 12:59 | disposition home or self-care (01) | DRG 249 ==
LOC: M ED 10:41 → M ED INP 15:46 → M ICU 17:12
PROVIDERS: ADMIT Internal Medicine Pulmonary Disease; ATTEND Student in an Organized Health Care Education/Training Program
PROC: 5A1D70Z Performance of Urinary Filtration, Intermittent, Less than 6 Hours Per Day (ICD-10-PCS; principal; 2024-06-22)
DX: A08.0 Rotaviral enteritis (principal); E87.20 Acidosis, unspecified; N18.6 End stage renal disease; I95.9 Hypotension, unspecified; I31.39 Other pericardial effusion (noninflammatory); E11.42 Type 2 diabetes mellitus with diabetic polyneuropathy; I12.0 Hypertensive chronic kidney disease with stage 5 chronic kidney disease or end stage renal disease; E11.649 Type 2 diabetes mellitus with hypoglycemia without coma; E87.1 Hypo-osmolality and hyponatremia; E87.5 Hyperkalemia; E86.0 Dehydration; D63.1 Anemia in chronic kidney disease; K21.9 Gastro-esophageal reflux disease without esophagitis; E78.5 Hyperlipidemia, unspecified; Z99.2 Dependence on renal dialysis; Z79.84 Long term (current) use of oral hypoglycemic drugs; Z79.899 Other long term (current) drug therapy; Z91.040 Latex allergy status; S22.31XD Fracture of one rib, right side, subsequent encounter for fracture with routine healing; F17.200 Nicotine dependence, unspecified, uncomplicated

== ENCOUNTER → 2024-11-22 | Outpatient (CLI) | payer OTHER ==
[~2024-11-22] MED LIST changes: +ATOR1TAB19 PO; +LISI20TA37 PO; +SEVE800T3 PO; +SUCR1TAB56 PO
[2024-11-22 12:36] LABS: BASO # 0.1 10^3/uL (0.0-0.2); BASO % 1.2 % (0.0-1.0); EOS # 0.2 10^3/uL (0.0-0.5); EOS % 4.1 % (0.0-3.0); LYMPH # 0.8 10^3/uL (1.5-5.0); LYMPH % 17.1 % (24.0-44.0); MONO # 0.6 10^3/uL (0.0-0.8); MONO % 12.6 % (2.0-8.0); NEUTROPHILS # 3.1 10^3/uL (1.5-8.5); NEUTROPHILS % 64.6 % (36.0-66.0); PLATELET COUNT, AUTOMATED 230 10^3/uL (150-450)
[2024-11-22 12:50] LABS: ALT/SGPT 16.0 U/L (7.0-40); AST/SGOT 17.0 U/L (<34); CALCIUM LEVEL 8.3 MG/DL (8.5-10.1); CARBON DIOXIDE LEVEL 28.0 MMOL/L (20-31); CHLORIDE LEVEL 93.0 MMOL/L (98-107); CHOLESTEROL LEVEL 81.0 MG/DL (<200); CHOLESTEROL RISK RATIO 2.5 (<5); CREATININE FOR GFR 6.24 MG/DL (0.70-1.30); GLOMERULAR FILTRATION RATE 10.1 (>56); LDL CHOLESTEROL 14.2 MG/DL (<100); NON-HDL-C 48.6 MG/DL; POTASSIUM SERUM 4.6 MMOL/L (3.5-5.1); SODIUM LEVEL 134.0 MMOL/L (136-145); TOTAL 25(OH) VITAMIN D 19.2 NG/ML (20.0-100.0); TRIGLYCERIDES LEVEL 172.0 MG/DL (<150)
[2024-11-22 12:54] LABS: ESTIMATED AVERAGE GLUCOSE 128.0 MG/DL (60-110)
== END ==
LOC: M WUC 09:07
PROVIDERS: ATTEND Nurse Practitioner Family
DX: E11.319 Type 2 diabetes mellitus with unspecified diabetic retinopathy without macular edema (principal); I10 Essential (primary) hypertension; N19 Unspecified kidney failure

== ENCOUNTER → 2024-11-22 | Outpatient (CLI) | payer OTHER | LOC: M WUC 09:12 | PROVIDERS: ATTEND Physician Assistant Surgical | DX: Z01.818 Encounter for other preprocedural examination (principal); E11.9 Type 2 diabetes mellitus without complications; I12.0 Hypertensive chronic kidney disease with stage 5 chronic kidney disease or end stage renal disease ==

== ENCOUNTER 2024-12-28 06:58 | Day surgery (SDC) | payer OTHER ==
[~2024-12-28] VITALS: Ht 185.4 cm; Wt 112.0 kg
[2024-12-28] MEDS ORDERED: LIDOCAINE 2% 100 MG/5 ML SDV (FOR ANES.) As Ordered ONE (07:40)
[2024-12-28 09:33] VITALS: TEMP 97.1
[2024-12-28 09:48] VITALS: BP 170/83; O2SAT 98
== END 2024-12-28 09:55 | disposition home or self-care (01) ==
LOC: M OPP 06:58
PROVIDERS: ATTEND Surgery
DX: D12.6 Benign neoplasm of colon, unspecified (principal); K64.2 Third degree hemorrhoids; Z86.0100 Personal history of colon polyps, unspecified; Z91.040 Latex allergy status; Z79.899 Other long term (current) drug therapy

== ENCOUNTER → 2025-02-21 | Outpatient (CLI) | payer OTHER | LOC: M PLALAB 14:08 | PROVIDERS: ATTEND Internal Medicine | DX: Z53.9 Procedure and treatment not carried out, unspecified reason (principal) ==